=== PATIENT | male | born 1965 | race African-American/Black ===

== ENCOUNTER 2017-10-30 06:20 | Inpatient (IN) ==
[2017-10-30] MEDS ORDERED: Clindamycin 900 mg/NS Premix 900 MG/50 ML PIGGYBACK IV.SIG ONE (07:32)
--- NOTE | 2017-10-30 07:46 | ED ---
HPI General Chief complaint: Skin/Abscess/Foreign Body Stated complaint: Hand recheck Time Seen by Provider: 10/30/17 07:23 History of Present Illness HPI narrative: This seen here 2 or 3 days ago and was diagnosed with a left fifth or felon. He had incision and drainage and culture has grown MRSA. He was given Keflex and Bactrim but his infection has progressed. He now has a diffuse sausage digit of the left fifth finger. It drains occasionally still. He denies fever. He was told to come back for recheck. Severity is moderate. No alleviating factors. No exacerbating factors. Related Data Home Medications Medication Instructions Recorded Confirmed cephalexin 500 mg PO QID 10/30/17 10/30/17 sulfamethoxazole-trimethoprim 1 tab PO BID 10/30/17 10/30/17 [Bactrim DS] Allergies Allergy/AdvReac Type Severity Reaction Status Date / Time No Known Allergies Allergy Verified 10/30/17 07:23 Review of Systems Except as stated in HPI: all other systems reviewed are negative PMFSH Social History Social History Substance History: Past History Second Hand Smoke Exposure: Yes Smoking Status: Heavy tobacco smoker Tobacco Type: Cigarettes How Often Do You Have a Drink Containing Alcohol: Monthly or less Recent Travel in [facility] within the Last 8 Weeks: No Recent Out of Country Travel within the Last 8 Weeks: No Immunization History Tetanus Immunization: >5 Years Tetanus Immunization Year if Known: 2013 Hx Influenza Vaccine This Season: No Exam Narrative Exam Narrative: GENERAL: Well-nourished, well-developed patient in no apparent distress. SKIN: Focused skin assessment reveals no rash and nodules. Skin is Warm and dry. HEAD: Atraumatic. Normocephalic. EYES: Pupils equal and round. No scleral icterus. No injection or drainage. ENT: No nasal bleeding or discharge. Mucous membranes pink and moist. NECK: Trachea midline. No JVD. CARDIOVASCULAR: Regular rate and rhythm. No murmur appreciated. RESPIRATORY: No accessory muscle use. Clear to auscultation. Breath sounds equal bilaterally. GASTROINTESTINAL: Abdomen soft, non-tender, nondistended. Hepatic and splenic margins not palpable. MUSCULOSKELETAL: No obvious deformities. No clubbing. No cyanosis. Examination of the left fifth finger reveals a diffuse swollen sausage like digit. There is an I&D site that is open. There is scant drainage from it. I can flex and extend the PIP and DIP and MCP joints of that finger without producing any significant pain. The whole finger is tender. NEUROLOGICAL: Awake and alert. No obvious cranial nerve deficits. Motor grossly within normal limits. Normal speech. PSYCHIATRIC: Appropriate mood and affect; insight and judgment normal. Course Initial Documented Vital Signs Temperature 97.8 F 10/30/17 06:22 Pulse Rate 75 10/30/17 06:22 Respiratory Rate 16 10/30/17 06:22 Blood Pressure 141/105 H 10/30/17 06:22 Pulse Oximetry 98 10/30/17 06:22 Last Documented Vital Signs Temperature 97.8 F 10/30/17 06:22 Pulse Rate 69 10/30/17 07:08 Respiratory Rate 16 10/30/17 08:40 Blood Pressure 141/105 H 10/30/17 06:22 Pulse Oximetry 99 10/30/17 07:08 Medical Decision Making MDM Narrative Medical decision making narrative: IV placed and labs sent. I gave 900 mg IV clindamycin. I placed a call to hand surgeon to discuss. Metabolic studies are normal. White count is normal. Case reviewed with hand surgeon. Patient will be admitted to medicine for IV antibiotics and hand surgeon will see him later today to decide whether surgical intervention is warranted. Differential Diagnosis Differential Diagnosis: Abscess, dactylitis, felon Medical Records Medical records reviewed: Yes I reviewed the patient's medical records. Reviewed his visit from a couple days ago as well as culture results showing MRSA Lab Data Result diagrams: 10/30/17 07:40 10/30/17 07:40 Lab Results 10/30/17 10/30/17 Range/Units 07:40 07:40 WBC 7.3 (4.0-11.0) th/mm3 RBC 3.92 L (4.50-5.90) mil/mm3 Hgb 12.4 L (13.0-17.0) gm/dL Hct 35.8 L (39.0-51.0) % MCV 91.3 (80.0-100.0) fL MCH 31.5 (27.0-34.0) pg MCHC 34.5 (32.0-36.0) % RDW 13.8 (11.6-17.2) % Plt Count 228 (150-450) th/mm3 MPV 8.7 (7.0-11.0) fL Neut % (Auto) 71.7 H (16.0-70.0) % Lymph % (Auto) 14.4 (9.0-44.0) % Arroyo % (Auto) 10.5 H (0.0-8.0) % Eos % (Auto) 2.3 (0.0-4.0) % Baso % (Auto) 1.1 (0.0-2.0) % Neut # (Auto) 5.3 (1.8-7.7) th/mm3 Lymph # (Auto) 1.1 (1.0-4.8) th/mm3 Arroyo # (Auto) 0.8 (0.0-0.9) th/mm3 Eos # (Auto) 0.2 (0.0-0.4) th/mm3 Baso # (Auto) 0.1 (0.0-0.2) th/mm3 WBC Differential . Differential Comment Auto diff final Sodium 139 (136-145) meq/L Potassium 4.0 (3.5-5.1) meq/L Chloride 107 (98-107) meq/L Carbon Dioxide 27.0 (21.0-32.0) meq/L Anion Gap 5 (5-15) meq/L BUN 16 (7-18) mg/dL Creatinine 1.23 (0.60-1.30) mg/dL Estimated GFR 75 L (>89) mL/min Random Glucose 94 (74-106) mg/dL Calcium 8.3 L (8.5-10.1) mg/dL Discharge Plan Discharge Disposition Patient Disposition: 30 Still Patient Discharge Condition Condition: Stable Discharge Details Diagnosis: Finger infection, Failure of outpatient treatment Physicians Team ED Provider: Andreas Barrera Primary Care Provider: Primary Care Mae Pablo Rxs /Orders / Referrals /Forms Prescriptions: No Action sulfamethoxazole-trimethoprim [Bactrim DS] 800-160 mg Tablet 1 tab PO BID RF: 0 cephalexin 500 mg Tablet 500 mg PO QID RF: 0 Discharge Interventions Interventions: Vital Signs Last Done: 10/30/17 07:08 Status ED Status: With Doctor
[2017-10-30 08:05] LABS: Baso # (Auto) 0.1 th/mm3 (0.0-0.2); Baso % (Auto) 1.1 % (0.0-2.0); Eos # (Auto) 0.2 th/mm3 (0.0-0.4); Eos % (Auto) 2.3 % (0.0-4.0); Hematocrit 35.8 % (39.0-51.0); Hemoglobin 12.4 gm/dL (13.0-17.0); Lymph # (Auto) 1.1 th/mm3 (1.0-4.8); Lymph % (Auto) 14.4 % (9.0-44.0); Mean Corpuscular HGB Conc 34.5 % (32.0-36.0); Mean Corpuscular Hemoglobin 31.5 pg (27.0-34.0); Mean Corpuscular Volume 91.3 fL (80.0-100.0); Mean Platelet Volume 8.7 fL (7.0-11.0); Mono # (Auto) 0.8 th/mm3 (0.0-0.9); Mono % (Auto) 10.5 % (0.0-8.0); Neut # (Auto) 5.3 th/mm3 (1.8-7.7); Neut % (Auto) 71.7 % (16.0-70.0); Platelet Count 228 th/mm3 (150-450); Red Blood Count 3.92 mil/mm3 (4.50-5.90); Red Cell Distribution Width 13.8 % (11.6-17.2); White Blood Count 7.3 th/mm3 (4.0-11.0)
[2017-10-30 08:24] LABS: Calcium 8.3 mg/dL (8.5-10.1)
[2017-10-30] MEDS ORDERED: Acetaminophen 325 MG Tablet PO PRN (10:34)
--- NOTE | 2017-10-30 10:44 | P.HPIM ---
History of Present Illness Primary Care Physician: No Primary Care Physician Chief Complaint: left little finger infection History of Present Illness: patient is a 52 y/o male with history of hypertension- who presented to ER with the infection of the left little finger. he says that he accidentally punctured his little finger a few days ago. he came to ER and had I/D of the finger and discharged with keflex and bactrim and was told to come back for follow-up. he says that the pain and swelling of the left little finger has got worse. pain was 8/10 at the time of my evaluation. he denies any fever or chills at home. Inpatient Certification: I certify that the inpatient services were ordered in accordance with Medicare regulations governing the order. This includes certification that hospital inpatient services are reasonable and necessary and in the case of services not specified as inpatient-only under 42 CFR 419.22(n), that they are appropriately provided as inpatient services in accordance to with the 2-midnight benchmark under 43 CFR 412.3(e) Estimated Total Length of Stay (Days): 2 Plans for Post Hospital Care: Home Review of Systems All other systems reviewed negative except as stated in HPI PMFSH - History History Provided By: Patient - Medical History Medical History: Medical History (Last Reviewed 10/30/17 @ 07:10 by Zora Olson RN) Hypertension - Surgical History Surgical History: Surgical History (Last Reviewed 10/30/17 @ 07:10 by Zora Olson RN) No history of previous surgery - Tobacco History Second Hand Smoke Exposure: Yes Tobacco Use In Past 30 Days: Yes Smoking Status: Heavy tobacco smoker Tobacco Type: Cigarettes - Alcohol History How Often Do You Have a Drink Containing Alcohol: Monthly or less - Substance Use History Substance History: Past History - Travel History Recent Travel in the [place] Within the Last 8 Weeks: No Recent Travel Out of the Country Within the Last 8 Weeks: No - Immunization History Tetanus Immunization: >5 Years Tetanus Immunization Year if Known: 2013 Hx Influenza Vaccine This Season: No Medications and Allergies Allergies Allergy/AdvReac Type Severity Reaction Status Date / Time No Known Allergies Allergy Verified 10/30/17 07:23 Home Medications Medication Instructions Recorded Confirmed Type cephalexin 500 mg PO QID 10/30/17 10/30/17 History sulfamethoxazole-trimethoprim 1 tab PO BID 10/30/17 10/30/17 History [Bactrim DS] Exam Vital signs: Vital Signs 10/30/17 06:22 10/30/17 07:08 10/30/17 08:40 Temperature 97.8 F Pulse Rate 75 69 Respiratory Rate 16 18 16 Blood Pressure 141/105 H Pulse Oximetry 98 99 Intake & Output 10/29/17 10/30/17 10/30/17 18:59 06:59 18:59 Intake Total 50 / 50 Balance 50 / 50 Weight 88.904 kg Intake: IV 50 / 50 Cleocin 900 mg/NS Premix 900 mg 50 / 50 In 50 ml @ 100 mls/hr IV.SIG ONCE ONE Rx#:[id number] - Constitutional no acute distress - Routine HEENT Exam Head: Present: normocephalic Eye: Present: PERRL - Routine Neck Exam Present: supple - Routine Respiratory Exam Present: CTA bilaterally - Routine Cardiovascular Exam Present: RRR - Routine Abdominal Exam Present: soft - Routine Extremities Exam Present: edema (edema of the left little finger with minimal discharge.) - Routine Neurological Exam Present: alert, oriented X3 Results - Labs CBC & Chem 7: 10/30/17 07:40 10/30/17 07:40 Labs: Short CBC 10/30/17 Range/Units 07:40 WBC 7.3 (4.0-11.0) th/mm3 Hgb 12.4 L (13.0-17.0) gm/dL Hct 35.8 L (39.0-51.0) % Plt Count 228 (150-450) th/mm3 BMP 10/30/17 07:40 Sodium 139 Potassium 4.0 Chloride 107 Carbon Dioxide 27.0 BUN 16 Creatinine 1.23 Calcium 8.3 L Caprini VTE Risk Assessment Caprini VTE Risk Assessment: No/Low Risk (score <= 1) Caprini Risk Assessment Model: Point Value = 1 Point Value = 2 Point Value = 3 Point Value = 5 Age 41-60 Minor surgery BMI > 25 kg/m2 Swollen legs Varicose veins or History of unexplained or recurrent spontaneous Oral contraceptives or hormone replacement Sepsis (< 1 month) Serious lung disease, including pneumonia (< 1 month) Abnormal pulmonary function Acute myocardial infarction Congestive heart failure (< 1 month) History of inflammatory bowel disease Medical patient at bed rest Age 61-74 Arthroscopic surgery Major open surgery (> 45 min) Laparoscopic surgery (> 45 min) Malignancy Confined to bed (> 72 hours) Immobilizing plaster cast Central venous access Age >= 75 History of VTE Family history of VTE Factor V Leiden Prothrombin [id number] Lupus anticoagulant Anticardiolipin antibodies Elevated serum homocysteine Heparin-induced thrombocytopenia Other congenital or acquired thrombophilia Stroke (< 1 month) Elective arthroplasty Hip, pelvis, or leg fracture Acute spinal cord injury (< 1 month) Prophylaxis Regimen: Total Risk Factor Score Risk Level Prophylaxis Regimen 0-1 Low Early ambulation 2 Moderate Order ONE of the following: *Sequential Compression Device (SCD) *Heparin 5000 units SQ BID 3-4 Higher Order ONE of the following medications: *Heparin 5000 units SQ TID *Enoxaparin/Lovenox 40 mg SQ daily (WT < 150 kg, CrCl > 30 mL/min) *Enoxaparin/Lovenox 30 mg SQ daily (WT < 150 kg, CrCl > 10-29 mL/min) *Enoxaparin/Lovenox 30 mg SQ BID (WT < 150 kg, CrCl > 30 mL/min) AND/OR *Sequential Compression Device (SCD) 5 or more Highest Order ONE of the following medications: *Heparin 5000 units SQ TID (Preferred with Epidurals) *Enoxaparin/Lovenox 40 mg SQ daily (WT < 150 kg, CrCl > 30 mL/min) *Enoxaparin/Lovenox 30 mg SQ daily (WT < 150 kg, CrCl > 10-29 mL/min) *Enoxaparin/Lovenox 30 mg SQ BID (WT < 150 kg, CrCl > 30 mL/min) AND *Sequential Compression Device (SCD) Assessment and Plan - Plan A/P - left little finger infection- had I/D three days ago in ER and was discharged on po antibiotics- now with worsening swelling. fluid culture with MRSA. continue with IV Clindamycin and pain control- will consult hand surgery. NPO till hand surgery evaluation. -history of hypertension- stopped taking his meds few months ago will monitor for now- vasotec prn. Discussed Condition With: ER physician and the patient. Discharge Planning: pending clinical improvement and hand surgery evaluation.
[2017-10-30] MEDS: Sod Chloride 0.9% Inj 1,000 ML IV.CONT SCH ×2 (12:43→22:55)
[2017-10-30] MEDS ORDERED: Lidocaine 1%/Epinephrine 1:100,000 Inj 50 ML Vial ONE (13:20)
--- NOTE | 2017-10-30 14:09 | P.CON ---
History of Present Illness Service: Hand surgery Consult date: 10/30/17 Primary Care Provider: No Primary Care Physician Chief Complaint: left little finger infection History of Present Illness: 52M with history of hypertension- who presented to ER with the infection of the left little finger, after he accidentally punctured his small finger a few days ago. He is status post I&D in the emergency department several days ago. This morning he felt his pain was slightly worse. Except as noted in the HPI review of systems negative to presenting complaint Family history noncontributory to presenting complaint Medication list reviewed - Medical History Medical History: Medical History (Last Reviewed 10/30/17 @ 07:10 by Zora Olson RN) Hypertension - Surgical History Surgical History: Surgical History (Last Reviewed 10/30/17 @ 07:10 by Zora Olson RN) No history of previous surgery - Tobacco History Second Hand Smoke Exposure: Yes Tobacco Use In Past 30 Days: Yes Smoking Status: Heavy tobacco smoker Tobacco Type: Cigarettes - Alcohol History How Often Do You Have a Drink Containing Alcohol: Monthly or less - Substance Use History Substance History: Past History PMFSH - History History Provided By: Patient - Medical History Medical History: Medical History (Last Reviewed 11/05/17 @ 06:31 by Cassandra Lee MD) Hypertension - Surgical History Surgical History: Surgical History (Last Reviewed 11/05/17 @ 06:31 by Cassandra Lee MD) No history of previous surgery - Tobacco History Second Hand Smoke Exposure: Yes Tobacco Use In Past 30 Days: Yes Smoking Status: Heavy tobacco smoker Tobacco Type: Cigarettes - Alcohol History How Often Do You Have a Drink Containing Alcohol: Monthly or less - Substance Use History Substance History: Past History - Travel History Recent Travel in the [place] Within the Last 8 Weeks: No Recent Travel Out of the Country Within the Last 8 Weeks: No - Immunization History Tetanus Immunization: >5 Years Tetanus Immunization Year if Known: 2013 Hx Influenza Vaccine This Season: No Medications and Allergies Active Medications: Active Medications Acetaminophen (Tylenol) 650 mg PO Q4H PRN PRN Reason: fever/ pain 1-2 Hydrocodone Bitart/Acetaminophen ([place]ham 5/325) 1 tab PO Q4H PRN PRN Reason: acute pain 3-7 Hydrocodone Bitart/Acetaminophen ([place] 5/325) 2 tab PO Q4H PRN PRN Reason: acute pain 8-10 Last Admin: 10/30/17 12:44 Dose: 2 tab Enalaprilat (Vasotec Inj) 1.25 mg IV.PUSH Q8H PRN PRN Reason: SBP > 180 or DBP > 100. Sodium Chloride (Ns Inj) 1,000 mls @ 100 mls/hr IV.CONT .Q10H NATHAN Last Admin: 10/30/17 12:43 Dose: 100 mls/hr Clindamycin/Sodium Chloride (Cleocin 600 Mg/Ns Premix) 600 mg in 50 mls @ 100 mls/hr IV.SIG Q8H NATHAN Stop: 10/31/17 03:04 Allergies Allergy/AdvReac Type Severity Reaction Status Date / Time No Known Allergies Allergy Verified 10/30/17 07:23 Physical Exam Vital signs: Vital Signs 10/30/17 06:22 10/30/17 07:08 10/30/17 08:40 Temperature 97.8 F Pulse Rate 75 69 Respiratory Rate 16 18 16 Blood Pressure 141/105 H Pulse Oximetry 98 99 10/30/17 10:48 Temperature Pulse Rate 51 L Respiratory Rate 16 Blood Pressure 132/79 Pulse Oximetry 95 Intake & Output 10/29/17 10/30/17 10/30/17 18:59 06:59 18:59 Intake Total 50 / 50 Balance 50 / 50 Weight 88.904 kg Intake: IV 50 / 50 Cleocin 900 mg/NS Premix 900 mg 50 / 50 In 50 ml @ 100 mls/hr IV.SIG ONCE ONE Rx#:[id number] Narrative: No apparent anxiety moist mucous membranes PERRLA skin without rash respirations nonlabored moves all fours extremities to command digits warm well perfused Left small finger with roughly 1 cm draining I&D site No discharge expressed with firm palpation Mild to moderate erythema of the small finger No tenderness over the flexor tendon sheath Patient able to make composite fist and fully extend his finger Sensation intact light touch distal small finger Assessment and Plan - Assessment (1) Finger infection Code(s): L08.9 - Local infection of the skin and subcutaneous tissue, unspecified Status: Acute - Plan 52-year-old male with slowly resolving left small finger felon status post ED I& D Given there is no discharge expressible, patient is unlikely to benefit from further I&D if no fluctuance appreciable Furthermore patient does not want a repeat I&D Agree with IV antibiotics Please call with questions
[2017-10-30] MEDS: Clindamycin 600 mg/NS Premix 600 MG/50 ML PIGGYBACK IV.SIG SCH (17:07)
[2017-10-31] MEDS: Clindamycin 600 mg/NS Premix 600 MG/50 ML PIGGYBACK IV.SIG SCH ×3 (00:17→21:17)
--- NOTE | 2017-10-31 12:02 | P.PN ---
Subjective Interval history: Follow-up visit HTN, left fifth finger cellulitis/abcess. Patient seen and examined today reports continues to have left fifth digit swelling. Denies pain and discomfort. Denies SOB/ dyspnea. Denies chest pain, palpitations, headaches, dizziness. Denies fevers, chills, n/v/d. Denies hematuria, dysuria. Physical Exam Vital signs: Vital Signs 10/30/17 14:51 10/30/17 16:00 10/30/17 19:09 Temperature 97.4 F L 98.3 F Pulse Rate 56 L 69 Respiratory Rate 0 L 16 16 Blood Pressure 138/93 H 168/90 H Pulse Oximetry 99 98 10/30/17 20:00 10/30/17 22:58 10/31/17 03:31 Temperature 97.4 F L 99.0 F Pulse Rate 60 56 L Respiratory Rate 16 17 16 Blood Pressure 135/76 147/83 H Pulse Oximetry 95 97 10/31/17 07:51 Temperature 98.1 F Pulse Rate 53 L Respiratory Rate 20 Blood Pressure 146/84 H Pulse Oximetry 97 Intake & Output 10/30/17 10/31/17 10/31/17 18:59 06:59 18:59 Intake Total 850 / 850 2019 / 2020 500 / 500 Balance 850 / 850 2019 / 2020 500 / 500 Intake: IV 50 / 50 1100 / 1100 NS Inj 1,000 ML @ 100 mls/hr IV 1000 / 1000 .CONT .Q10H [facility] Rx#:[id number] Cleocin 600 mg/NS Premix 600 mg 100 / 100 In 50 ml @ 100 mls/hr IV.SIG Q8H [facility] Rx#:[id number] Cleocin 900 mg/NS Premix 900 mg 50 / 50 In 50 ml @ 100 mls/hr IV.SIG ONCE ONE Rx#:[id number] Oral 800 / 800 920 / 920 500 / 500 Other: # Voids 3 # Urine Diapers 5 Narrative: GENERAL: This is a well-nourished, well-developed patient, in no apparent distress. SKIN: Warm and dry. HEENT: Normocephalic. Pupils equal round and reactive. Nose without bleeding. Airway patent. NECK: Trachea midline. No JVD. Supple. CARDIOVASCULAR: Regular rate and rhythm without murmurs, gallops, or rubs. RESPIRATORY: Clear to auscultation. Breath sounds equal bilaterally. No wheezes , rales, or rhonchi. GASTROINTESTINAL: Abdomen soft, non-tender, nondistended. Bowel Sounds normoactive x4. MUSCULOSKELETAL: Extremities without clubbing, cyanosis, or edema. Left fifth digit without discharge expressed, Mild to moderate erythema of the small finger , limited R OM, sensation intact NEUROLOGICAL: Awake and alert. Oriented to time, place, person. No focal neuro deficit. Moves all extremities. Normal speech. Results - Labs CBC & Chem 7: 10/30/17 07:40 10/30/17 07:40 Assessment and Plan - Plan Patient is a 52 y/o male with history of hypertension- who presented to ER with the infection of the left little finger, puncture wound, had I&D in the ED and was discharged with Keflex and Bactrim, came back to the ED for increased swelling and pain Left fifth digit finger infection, status post I&D 3 days ago in the ED -Fluid culture with MRSA -Started on clindamycin IV, will continue. -Hand surgery consulted, appreciate recommendation. Plan for IV antibiotics for now if does not improve within 24 hours possible repeat I&D -Pain management. HTN, uncontrolled -Patient stopped taking his medications few months ago -SBP greater than 140s -We will start patient on low-dose Norvasc. DVT prop SCDs, early ambulation Code Status: Full code Discussed Condition With: Patient, nursing Discharge Planning: Plan to DC home when clinically improved. Continue IV antibiotics for now.
[2017-10-31] MEDS: Sod Chloride 0.9% Inj 1,000 ML IV.CONT SCH ×2 (12:42→21:17)
[2017-11-01] MEDS: Clindamycin 600 mg/NS Premix 600 MG/50 ML PIGGYBACK IV.SIG SCH ×3 (05:40→22:33)
--- NOTE | 2017-11-01 09:59 | P.PN ---
Subjective Interval history: Nursing denies any deterioration since last night. Patient reports that he feels like his left pinky finger is locking up. Says it feels harder today in comparison to yesterday. Overall he thinks the swelling is unchanged. Physical Exam Vital signs: Vital Signs 10/31/17 12:00 10/31/17 16:00 10/31/17 16:34 Temperature 98.8 F 97.8 F Pulse Rate 55 L 51 L Respiratory Rate 18 18 Blood Pressure 142/79 H 161/90 H 141/92 H Pulse Oximetry 95 96 10/31/17 19:49 11/01/17 00:00 11/01/17 04:00 Temperature 98.8 F 98.4 F 98.0 F Pulse Rate 52 L 50 L 49 L Respiratory Rate 16 17 19 Blood Pressure 153/87 H 150/82 H 166/88 H Pulse Oximetry 98 98 98 Intake & Output 10/31/17 11/01/17 11/01/17 18:59 06:59 18:59 Intake Total 1500 / 1500 1450 / 1450 Balance 1500 / 1500 1450 / 1450 Weight 88.9 kg Intake: IV 1000 / 1000 1100 / 1100 NS Inj 1,000 ML @ 100 mls/hr IV 1000 / 1000 1000 / 1000 .CONT .Q10H [facility]ATHAN Rx#:[id number] Cleocin 600 mg/NS Premix 600 mg 100 / 100 In 50 ml @ 100 mls/hr IV.SIG Q8H [facility]ATH[facility] Rx#:[id number] Oral 500 / 500 350 / 350 Other: # Voids 1 Narrative: Almost crepitus like feeling in the distal and middle phalanges of the fifth digit, some purulence is noted today Results - Labs CBC & Chem 7: 10/30/17 07:40 10/30/17 07:40 Assessment and Plan - Plan Patient is a 52 y/o male with history of hypertension- who presented to ER with the infection of the left little finger, puncture wound, had I&D in the ED and was discharged with Keflex and Bactrim, came back to the ED for increased swelling and pain Left fifth digit finger infection, status post I&D 4 days ago in the ED -Fluid culture with MRSA -Continue clindamycin IV, notified nursing to notify hand surgery to reexamine finger to see if repeat incision and drainage as needed. May consult infectious disease to see if IV antibiotics will be warranted upon discharge -Pain management. HTN, uncontrolled - Norvasc. DVT prop SCDs, early ambulation
[2017-11-01] MEDS: Sod Chloride 0.9% Inj 1,000 ML IV.CONT SCH ×2 (10:27→22:35)
[2017-11-01] MEDS: amLODIPine 5 MG Tablet PO SCH (12:30)
[2017-11-01] MEDS ORDERED: Bisacodyl 10 MG Supp RECTAL PRN (22:28)
[2017-11-02] MEDS: Clindamycin 600 mg/NS Premix 600 MG/50 ML PIGGYBACK IV.SIG SCH ×2 (04:16→12:11)
[2017-11-02] MEDS: Sod Chloride 0.9% Inj 1,000 ML IV.CONT SCH ×2 (04:16→12:01)
[2017-11-02 08:55] VITALS: RESP 18
[2017-11-02] MEDS: amLODIPine 5 MG Tablet PO SCH (09:19)
[2017-11-02 11:56] VITALS: BP 141/88; PULSE 73; TEMP 97; O2SAT 100
--- NOTE | 2017-11-02 14:25 | P.CONID ---
History of Present Illness Service: ID Consult date: 11/02/17 Requesting Physician: Erasto Cheng Reason for Consult: finger infection Primary Care Provider: No Primary Care Physician Chief Complaint: left little finger infection History of Present Illness: 52 yo male w/o signigficant med problems presented intially on 10/27 with c/o swollen tender L 5th finger He was bitten by a crab few days prior and since then he expierinxce pain swelling and redness He had bedside I+D in ER and was discharge on Bactrim + Keflex He came back 3 days ago as he cont o experince the abpve smx He was seen by hand surgeon who recommended conservative treatment with abx Clx grew out MRSA He is on vancomycin and states iprovemnt No fever, chills No IV access Review of Systems All other systems reviewed negative except as stated in HPI PMFSH - History History Provided By: Patient - Medical History Medical History: Medical History (Last Reviewed 11/05/17 @ 06:31 by Cassandra Lee MD) Hypertension - Surgical History Surgical History: Surgical History (Last Reviewed 11/05/17 @ 06:31 by Cassandra Lee MD) No history of previous surgery - Family History Family History: Family History (Last Updated 12/27/17 @ 09:37 by Nadiya Downs MD) Other Family history non-contributory No pertinent family history - Social History I have reviewed the patient's Social History: Yes - Tobacco History Second Hand Smoke Exposure: Yes Tobacco Use In Past 30 Days: Yes Smoking Status: Heavy tobacco smoker Tobacco Type: Cigarettes - Alcohol History How Often Do You Have a Drink Containing Alcohol: Monthly or less - Substance Use History Substance History: Past History - Travel History Recent Travel in the [place] Within the Last 8 Weeks: No Recent Travel Out of the Country Within the Last 8 Weeks: No - Immunization History Tetanus Immunization: >5 Years Tetanus Immunization Year if Known: 2013 Hx Influenza Vaccine This Season: No Medications and Allergies Active Medications: Active Medications Acetaminophen (Tylenol) 650 mg PO Q4H PRN PRN Reason: fever/ pain 1-2 Hydrocodone Bitart/Acetaminophen ([place] 5/325) 1 tab PO Q4H PRN PRN Reason: acute pain 3-7 Last Admin: 11/01/17 23:29 Dose: 1 tab Hydrocodone Bitart/Acetaminophen ([place] 5/325) 2 tab PO Q4H PRN PRN Reason: acute pain 8-10 Last Admin: 11/02/17 12:10 Dose: 2 tab Al Hydroxide/Mg Hydroxide (Milk Of Magnesia Liq) 30 ml PO Q12H PRN PRN Reason: Mild Constipation Last Admin: 11/01/17 23:30 Dose: 30 ml Amlodipine Besylate (Norvasc) 5 mg PO DAILY [facility] Last Admin: 11/02/17 09:19 Dose: 5 mg Bisacodyl (Dulcolax Supp) 10 mg RECTAL DAILY PRN PRN Reason: SEVERE CONSITIPATION Enalaprilat (Vasotec Inj) 1.25 mg IV.PUSH Q8H PRN PRN Reason: SBP > 180 or DBP > 100. Last Admin: 11/02/17 06:37 Dose: 1.25 mg Sodium Chloride (Ns Inj) 1,000 mls @ 100 mls/hr IV.CONT .Q10H [facility] Last Admin: 11/02/17 12:01 Dose: Not Given Clindamycin/Sodium Chloride (Cleocin 600 Mg/Ns Premix) 600 mg in 50 mls @ 100 mls/hr IV.SIG Q8H [facility] Last Admin: 11/02/17 12:11 Dose: 100 mls/hr Lactulose (Lactulose Liq) 30 ml PO DAILY PRN PRN Reason: SEVERE CONSITIPATION Sennosides (Senokot) 17.2 mg PO Q12H PRN PRN Reason: Moderate Constipation Allergies Allergy/AdvReac Type Severity Reaction Status Date / Time No Known Allergies Allergy Verified 10/30/17 07:23 Exam Vital signs: Vital Signs 11/01/17 16:00 11/01/17 20:00 11/02/17 00:00 Temperature 97.6 F 97.5 F L 98.7 F Pulse Rate 58 L 59 L 50 L Respiratory Rate 16 17 16 Blood Pressure 149/88 H 159/99 H 149/96 H Pulse Oximetry 99 98 98 11/02/17 04:00 11/02/17 08:00 11/02/17 11:54 Temperature 97.5 F L 97.2 F L 97 F L Pulse Rate 56 L 50 L 73 Respiratory Rate 17 18 18 Blood Pressure 159/99 H 143/90 H 141/88 H Pulse Oximetry 96 99 100 Intake & Output 11/01/17 11/02/17 11/02/17 18:59 06:59 18:59 Intake Total 2250 / 2250 2550 / 2550 Balance 2250 / 2250 2550 / 2550 Weight 88.2 kg Intake: IV 1050 / 1050 2100 / 2100 NS Inj 1,000 ML @ 100 mls/hr IV 1000 / 1000 2000 / 2000 .CONT .Q10H [facility] Rx#:[id number] Cleocin 600 mg/NS Premix 600 mg 50 / 50 100 / 100 In 50 ml @ 100 mls/hr IV.SIG Q8H [facility] Rx#:[id number] Oral 1200 / 1200 450 / 450 Other: # Voids 5 6 # Bowel Movements 1 - Constitutional no acute distress, average body habitus - Routine HEENT Exam Head: Present: normocephalic, atraumatic Eye: Present: EOMI, PERRL ENT: Present: mucous membranes moist, oropharynx clear, dentition normal - Routine Neck Exam Present: supple, full ROM - Routine Respiratory Exam Present: CTA bilaterally Comments: good effort - Routine Cardiovascular Exam Present: RRR, S1, S2 Comments: no murmus, rubs or gallops - Routine Abdominal Exam Present: soft, normoactive bowel sounds Comments: not tender not distended no organomegaly or masses - Routine Extremities Exam Comments: no cyanosis, clubbing or edema STATUS LOCALIS: L 5th finger is edematous erythemaous with decreased ROM 2/2 edema small openinf in distal phalnx ventrall small amount of thick odcerless white pus expressed - Routine Skin Exam Present: intact, dry, warm - Routine Neurological Exam Present: alert, oriented X3, moving all extremities, vision grossly intact, hearing grossly intact, normal speech - Routine Psychiatric Exam Present: normal affect, cooperative Results - Labs CBC & Chem 7: 10/30/17 07:40 10/30/17 07:40 Assessment and Plan - Plan L 5th finger abscess, MRSA sp I+D draining + some improvement OK to dc from ID [facility] on doxycyline 100 bid x 14 days tod Khalil
--- NOTE | 2017-11-02 14:56 | P.DS ---
Date of admission: 10/30/17 09:26 Primary care physician: No Primary Care Physician Brief History from admission: patient is a 52 y/o male with history of hypertension- who presented to ER with the infection of the left little finger. he says that he accidentally punctured his little finger a few days ago. he came to ER and had I/D of the finger and discharged with keflex and bactrim and was told to come back for follow-up. he says that the pain and swelling of the left little finger has got worse. pain was 8/10 at the time of my evaluation. he denies any fever or chills at home. DS: Diagnosis - Discharge Diagnosis (1) Finger infection Status: Acute DS: Medications - Discharge Medications Prescriptions: amlodipine [Norvasc] 5 mg PO DAILY #30 tab hydrocodone-acetaminophen 1 tab PO Q8H PRN #21 tab PRN Reason: Acute Pain DS: Summary Hospital Course: Patient had finger incised and drained in the emergency department. Past surgery was consulted and recommended antibiotics. Patient was cleared for discharge from ID standpoint with p.o. antibiotics. Patient's finger had improved significantly. Patient has met maximal benefit from hospitalization is clinically stable for discharge. - Time Spent with Patient Total time spent providing and/or coordinating discharge services: Less than 30 minutes - Quality: VTE Deep Vein Thrombosis/Pulmonary Embolism Present on Admission: No Exam Vital signs: Vital Signs 11/01/17 16:00 11/01/17 20:00 11/02/17 00:00 Temperature 97.6 F 97.5 F L 98.7 F Pulse Rate 58 L 59 L 50 L Respiratory Rate 16 17 16 Blood Pressure 149/88 H 159/99 H 149/96 H Pulse Oximetry 99 98 98 11/02/17 04:00 11/02/17 08:00 11/02/17 11:54 Temperature 97.5 F L 97.2 F L 97 F L Pulse Rate 56 L 50 L 73 Respiratory Rate 17 18 18 Blood Pressure 159/99 H 143/90 H 141/88 H Pulse Oximetry 96 99 100 Intake & Output 11/01/17 11/02/17 11/02/17 18:59 06:59 18:59 Intake Total 2250 / 2250 2550 / 2550 Balance 2250 / 2250 2550 / 2550 Weight 88.2 kg Intake: IV 1050 / 1050 2100 / 2100 NS Inj 1,000 ML @ 100 mls/hr IV 1000 / 1000 2000 / 2000 .CONT .Q10H [facility] Rx#:[id number] Cleocin 600 mg/NS Premix 600 mg 50 / 50 100 / 100 In 50 ml @ 100 mls/hr IV.SIG Q8H [facility] Rx#:[id number] Oral 1200 / 1200 450 / 450 Other: # Voids 5 6 # Bowel Movements 1 Results Procedures completed during hospitalization: Incision and drainage in the emergency department Discharge Plan - Discharge Disposition Patient Disposition: Discharge Home - Discharge Condition Condition: Stable - Discharge Order Discharge Orders: Discharge Order (Routine); Ordered 11/02/17 Ordered By: Erasto Cheng - Physicians Team Primary Care Provider: Primary Care Samy,Mae Attending Provider: Erasto Cheng Other Providers: Pawan Benoit MD ; Nadiya Downs MD
--- NOTE | 2017-11-02 16:18 | P.PN ---
Subjective Interval history: Patient feels that his finger is much less painful and he is able to move it significantly better than upon presenting to the hospital. He denies new complaints. Physical Exam Vital signs: Vital Signs 11/01/17 20:00 11/02/17 00:00 11/02/17 04:00 Temperature 97.5 F L 98.7 F 97.5 F L Pulse Rate 59 L 50 L 56 L Respiratory Rate 17 16 17 Blood Pressure 159/99 H 149/96 H 159/99 H Pulse Oximetry 98 98 96 11/02/17 08:00 11/02/17 11:54 Temperature 97.2 F L 97 F L Pulse Rate 50 L 73 Respiratory Rate 18 18 Blood Pressure 143/90 H 141/88 H Pulse Oximetry 99 100 Intake & Output 11/01/17 11/02/17 11/02/17 18:59 06:59 18:59 Intake Total 2250 / 2250 2550 / 2550 Balance 2250 / 2250 2550 / 2550 Weight 88.2 kg Intake: IV 1050 / 1050 2100 / 2100 NS Inj 1,000 ML @ 100 mls/hr IV 1000 / 1000 2000 / 2000 .CONT .Q10H [facility] Rx#:[id number] Cleocin 600 mg/NS Premix 600 mg 50 / 50 100 / 100 In 50 ml @ 100 mls/hr IV.SIG Q8H [facility] Rx#:[id number] Oral 1200 / 1200 450 / 450 Other: # Voids 5 6 # Bowel Movements 1 Narrative: Patient able to make a composite fist Patient able to touch his fingertip to his palm No discharge expressed out of the incision from the emergency department No erythema appreciated Significantly decreased edema Results - Labs CBC & Chem 7: 10/30/17 07:40 10/30/17 07:40 - Procedures Incision and drainage in the emergency department Assessment and Plan - Assessment (1) Finger infection Code(s): L08.9 - Local infection of the skin and subcutaneous tissue, unspecified Status: Acute - Plan 52-year-old male with slowly resolving left small finger felon status post ED I& D Patient much improved P.o. antibiotics per ID Discharge planning per primary
== END 2017-11-02 16:00 | disposition home or self-care (01) ==
LOC: NEPE 06:20 → NEDA 09:26 → NEPGCP 11:04 → H7ONC 11-01 02:40
PROVIDERS: ADMIT Hospitalist; ATTEND Hospitalist